=== PATIENT | male | born 1995 | race Hispanic/Latino ===

== ENCOUNTER 2024-08-20 07:51 | Emergency (ER) | payer OTHER ==
[2024-08-20] MEDS ORDERED: Boostrix 0.5 ML (Tdap) VIAL (>/=7 yrs of age) ONE (08:05)
[2024-08-20] MEDS ORDERED: Lidocaine 1% (PF) 30 ML VIAL ONE (08:14)
== END 2024-08-20 08:44 | disposition home or self-care (01) ==
LOC: NAV ERS 07:51
DX: S61.241A Puncture wound with foreign body of left index finger without damage to nail, initial encounter (principal); W45.8XXA Other foreign body or object entering through skin, initial encounter
CPT/HCPCS: 90471; 90715

== ENCOUNTER 2024-11-19 07:51 | Emergency (ER) | payer BC ==
[2024-11-19] MEDS ORDERED: Ibuprofen 200 MG TAB ONE (08:19)
[2024-11-19] MEDS ORDERED: methylPREDNISolone Acetate 40 mg/ml Vial ONE (08:51)
== END 2024-11-19 09:48 | disposition home or self-care (01) ==
LOC: NAV ERS 07:51
DX: J02.9 Acute pharyngitis, unspecified (principal); J20.8 Acute bronchitis due to other specified organisms
CPT/HCPCS: 71046; 87081; 87428; 87430; 96372; J1010